=== PATIENT | female | born 1980 | race Caucasian/White ===

== ENCOUNTER 2017-08-02 10:56 | Emergency (ER) | payer SELFPAY ==
[~2017-08-02] VITALS: Ht 162.6 cm; Wt 48.1 kg
[~2017-08-02 10:56] MED LIST: AC500T PO; ACHD5005 PO; ALBU8.5H4 IH; AMOX500T2 PO; AZIT-21; AZIT250T81 PO; BUPR150T49 PO; CALC60OI2 TP; CALC60SU TP; CLIN150C2 PO; CYCL10TA9 PO; DCS100C PO; FERR-57 PO; FERR160T5 PO; FLT05NA16 NS; GUAI-555 PO; HYDR-3063 PO; HYDR1TAB PO; HYDR1TAB8 PO; IBP600T1 PO; IBUP-30 PO; LISI40TA PO; LRT10T PO; MNTL10T PO; MULT-974 PO; MULT1CAP27 PO; NAPR-243 PO; NF-KET2% TOP; OCP; OMEG-34 PO; ONDA4TAB11 PO; ONDAN4ODT PO; PRCD5U PO; PRD50T PO; PREN-115 PO; PREN1TAB39 PO; PRM25T PO; TRAM50TA2 PO; TRM50T PO; [UNRECOGNIZED DRUG - CODE] PO
--- OUTSIDE RECORDS SUMMARY | 2017-08-02 11:02 | XMS REPORT | Clinical Summary ---
Author Author User, RONNIE Organization [facility] Address Unknown Phone Allergies, Adverse Reactions, Alerts Allergy Name Reaction Description Start Date Severity Status Provider No Known Allergies Naima Hinson Conditions or Problems Problem Name Problem Code Onset Date Status Entry Date Provider Comment Standard Description Annotate WEIGHT LOSS 783.21 Active Naima Hinson Loss of weight OTHER PSORIASIS 696.1 Active Naima Hinson Other psoriasis STREPTOCOCCAL PHARYNGITIS 034.0 Active Naima Hinson Streptococcal sore throat ANEMIA, IRON DEFICIENCY NEC 280.8 Active Naima Hinson Other specified iron deficiency anemias Medication List Medication Instructions Start Date Stop Date Generic Name NDC Status Provider Patient Instruction OTEZLA 30 MG TABS 1 TAB PO BID, APPROXIMATELY 12 HRS APART APREMILAST 24248774706 Active Naima Hinson CLOBETASOL PROPIONATE 0.05 % CREA APPLY BY TOPICAL ROUTE 2 TIMES EVERY DAY A THIN LAYER TO THE AFFECTED AREAS CLOBETASOL PROPIONATE 91121968345 Active Naima Hinson CIPRO 500 MG TABS 1 PO BID X 7 DAYS CIPROFLOXACIN HCL 86976540202 Active Keyonna Mobley PYRIDIUM 200 MG TABS 1 PO TID PRN PHENAZOPYRIDINE HCL 72438265708 Active Keyonna Mobley DEPO-PROVERA 150 MG/ML SUSP 1 injection every 3 months 2012 MEDROXYPROGESTERONE ACETATE 99179949480 Active Naima Hinson MULTIVITAMINS TABS 1 PO QD MULTIPLE VITAMIN Active Naima Hinson VITAMIN D 1000 UNIT TABS 1 PO Daily CHOLECALCIFEROL 56227400868 Active Naima Hinson FISH OIL 1000 MG CAPS 1 PO daily OMEGA-3 FATTY ACIDS 37214075373 Active Naima Hinson Vital Signs Date Name Value Unit Range Description blood pressure, diastolic - 8462-4 55 mm[Hg] BP marley blood pressure, systolic - 8480-6 100 mm[Hg] BP sys pulse rate E&M - 8867-4 70 /min Heart rate respiratory rate E&M - 9279-1 14 /min Resp rate weight E&M - 3141-9 105 [lb_av] Weight Measured blood pressure, diastolic - 8462-4 65 mm[Hg] BP marley blood pressure, systolic - 8480-6 95 mm[Hg] BP sys pulse rate E&M - 8867-4 72 /min Heart rate respiratory rate E&M - 9279-1 14 /min Resp rate weight E&M - 3141-9 106 [lb_av] Weight Measured blood pressure, diastolic - 8462-4 58 mm[Hg] BP marley blood pressure, systolic - 8480-6 108 mm[Hg] BP sys height E&M - 8302-2 64 [in_us] Bdy height pulse rate E&M - 8867-4 78 /min Heart rate respiratory rate E&M - 9279-1 14 /min Resp rate temperature E&M 98.1 [degF] Body temperature weight E&M - 3141-9 105 [lb_av] Weight Measured Diagnostic Results Date Name Value Unit Range Description Clinical Lists Update: CBC,CMP,FERRITIN - Chemistry Estimated Glomerular Filtration Rate (calc) 111 mL/min/1.73m2 albumin, serum 4.6 g/dL alkaline phosphatase, serum 60 U/L urea nitrogen, blood 14 mg/dL calcium, serum 9.0 mg/dL chloride, serum 105 mmol/L carbon dioxide, venous blood 27.0 mmol/L creatinine, serum 0.7 mg/dL ferritin, serum 97.3 ng/mL potassium, serum 3.9 mmol/L protein, total, serum 6.9 g/dL aspartate aminotransferase (SGOT), serum 15 U/L alanine aminotransferase (SGPT), serum 10 U/L bilirubin, serum, total 0.6 mg/dL sodium, serum 137 mmol/L anion gap, serum 9 glucose, plasma fasting 98 mg/dL Clinical Lists Update: CBC,CMP,FERRITIN - Hematology hematocrit, blood 36 % erythrocyte (RBC) count 3.76 10*6/mm3 leukocyte count, blood 5.5 10*3/mm3 red blood cell distribution width 16.1 % mean corpuscular volume, RBC 96 fL platelet count 189 10*3/mm3 hemoglobin, blood 11.8 g/dL Clinical Lists Update: CBC,CMP,FERRITIN,ESR,HGA1C,UA - Chemistry protein, total, serum 7.0 g/dL aspartate aminotransferase (SGOT), serum 13 U/L urea nitrogen, blood 11 mg/dL alanine aminotransferase (SGPT), serum 7 U/L bilirubin, serum, total 0.3 mg/dL calcium, serum 9.0 mg/dL sodium, serum 137 mmol/L anion gap, serum 9 chloride, serum 104 mmol/L glucose, plasma fasting 116 mg/dL alkaline phosphatase, serum 65 U/L potassium, serum 3.9 mmol/L carbon dioxide, venous blood 28.0 mmol/L creatinine, serum 0.6 mg/dL albumin, serum 4.3 g/dL ferritin, serum 8.2 ng/mL Estimated Glomerular Filtration Rate (calc) 115 mL/min/1.73m2 hemoglobin A1C, blood, as % of total hemoglobin 5.4 % Clinical Lists Update: CBC,CMP,FERRITIN,ESR,HGA1C,UA - Hematology red blood cell distribution width 15.0 % mean corpuscular volume, RBC 93 fL leukocyte count, blood 5.9 10*3/mm3 erythrocyte (RBC) count 4.32 10*6/mm3 platelet count 268 10*3/mm3 hemoglobin, blood 12.4 g/dL hematocrit, blood 40 % erythrocyte sedimentation rate 7 mm/h Clinical Lists Update: CBC,CMP,FERRITIN,ESR,HGA1C,UA - Urinalysis protein, urine, semiquantitative (dipstick) neg blood in urine (hemoglobin) by dipstick trace glucose, urine, semiquantitative neg hyaline casts, urine none /[LPF] bilirubin, urine neg WBC urine on microscopy 5-10 {Cells}/[HPF] ketones, urine, by test strip neg mucus on urinalysis none nitrite, urine, semiquantitative positive RBC urine by microscopy 0-2 pH, urine, semiquantitative 6.0 epithelial cells, urine 5-10 /[LPF] specific gravity, urine >1.030 bacteria, urine microscopy 1+ urobilinogen, urine, semiquantitative (dipstick) 0.2 appearance, urine Cloudy Yellow Clinical Lists Update: UA - Urinalysis glucose, urine, semiquantitative neg bilirubin, urine neg ketones, urine, by test strip neg nitrite, urine, semiquantitative neg pH, urine, semiquantitative 7.5 specific gravity, urine 1.025 urobilinogen, urine, semiquantitative (dipstick) 0.2 appearance, urine Cloudy Yellow WBC urine on microscopy 20-30 {Cells}/[HPF] RBC urine by microscopy 5-10 bacteria, urine microscopy 2+ hyaline casts, urine none /[LPF] epithelial cells, urine 10-20 /[LPF] mucus on urinalysis 1+ protein, urine, semiquantitative (dipstick) 30 blood in urine (hemoglobin) by dipstick trace Encounters Code Encounter Date Provider Facility CPT-58342 Ofc Vst, Est Level IV 19:32:42 CDT [facility] CPT-40497 Ofc Vst, Est Level V 21:11:23 CDT Naima Hinson DO, FACP CPT-97476 Ofc Vst, New Level IV 17:38:03 CDT Naima [facility]
--- OUTSIDE RECORDS SUMMARY | 2017-08-02 11:02 | XMS REPORT | Clinical Summary ---
Author Author User, RONNIE Organization [place] [facility] Address Unknown Phone Allergies, Adverse Reactions, [...] PO BID, APPROXIMATELY 12 HRS APART APREMILAST 01509649092 Active Naima Hinson CLOBETASOL PROPIONATE 0.05 % CREA APPLY BY TOPICAL ROUTE 2 TIMES EVERY DAY A THIN LAYER TO THE AFFECTED AREAS CLOBETASOL PROPIONATE 08348828277 Active Naima Hinson CIPRO 500 MG TABS 1 PO BID X 7 DAYS CIPROFLOXACIN HCL 02545258491 Active eKyonna Mobley PYRIDIUM 200 MG TABS 1 PO TID PRN PHENAZOPYRIDINE HCL 62569545410 Active Keyonna Mobley DEPO-PROVERA 150 MG/ML SUSP 1 injection every 3 months 2012 MEDROXYPROGESTERONE ACETATE 45744853543 Active Naima Hinson MULTIVITAMINS TABS 1 PO QD MULTIPLE VITAMIN Active Naima Hinson VITAMIN D 1000 UNIT TABS 1 PO Daily CHOLECALCIFEROL 91412168687 Active Naima Hinson FISH OIL 1000 MG CAPS 1 PO daily OMEGA-3 FATTY ACIDS 54135661307 Active Naima Hinson Vital Signs Date Name [...] trace Encounters Code Encounter Date Provider Facility CPT-35688 Ofc Vst, Est Level IV 19:32:42 CDT [facility] CPT-73810 Ofc Vst, Est Level V 21:11:23 CDT Naima Hinson DO, FACP CPT-86181 Ofc Vst, New Level IV 17:38:03 CDT Naima [facility]
--- OUTSIDE RECORDS SUMMARY | 2017-08-02 11:02 | XMS REPORT | Clinical Summary ---
Author Author User, RONNIE Organization [facility] Address Unknown Phone Allergies, Adverse Reactions, [...] PO BID, APPROXIMATELY 12 HRS APART APREMILAST 57044893872 Active Naima Hinson CLOBETASOL PROPIONATE 0.05 % CREA APPLY BY TOPICAL ROUTE 2 TIMES EVERY DAY A THIN LAYER TO THE AFFECTED AREAS CLOBETASOL PROPIONATE 39659698266 Active Naima Hinson CIPRO 500 MG TABS 1 PO BID X 7 DAYS CIPROFLOXACIN HCL 19023126420 Active Keyonna Mobley PYRIDIUM 200 MG TABS 1 PO TID PRN PHENAZOPYRIDINE HCL 71674435174 Active Keyonna Mobley DEPO-PROVERA 150 MG/ML SUSP 1 injection every 3 months 2012 MEDROXYPROGESTERONE ACETATE 71951180238 Active Naima Hinson MULTIVITAMINS TABS 1 PO QD MULTIPLE VITAMIN Active Naima Hinson VITAMIN D 1000 UNIT TABS 1 PO Daily CHOLECALCIFEROL 20820594352 Active Naima Hinson FISH OIL 1000 MG CAPS 1 PO daily OMEGA-3 FATTY ACIDS 82667175001 Active Naima Hinson Vital Signs Date Name [...] trace Encounters Code Encounter Date Provider Facility CPT-54418 Ofc Vst, Est Level IV 19:32:42 CD[facility] CPT-74381 Ofc Vst, Est Level V 21:11:23 CDT Naima Hinson DO, FACP CPT-09157 Ofc Vst, New Level IV 17:38:03 CDT Naima [facility]
--- OUTSIDE RECORDS SUMMARY | 2017-08-02 11:02 | XMS REPORT ---
Author Author SINA FOY [facility] e[employer] Address Unknown Phone Unavailable Care Team Providers Care Director Search Name Role Phone SINA FOY Unavailable Allergies, Adverse Reactions, Alerts Substance Reaction Event Type N.K.D.A. Info Not Available Non Drug Allergy Problems Problem Type Condition Code Onset Dates Condition Status Assessment Acute left ankle pain M25.572 Active Problem Unspecified viral exanthem 057.9 Active Problem Acute bronchitis 466.0 Active Problem Dizziness and giddiness 780.4 Active Problem Acute upper respiratory infections of unspecified site 465.9 Active Problem Unspecified anemia 285.9 Active Problem Acute sinusitis, unspecified 461.9 Active Problem Cough 786.2 Active Problem Other specified disease of hair and hair follicles 704.8 Active Problem Wheezing 786.07 Active Medications Medication Code System Code Instructions Start Date End Date Status Dosage [place] [facility] [address]-31 5-325 MG Orally tid prn May 06, 2016 1 tablet as needed Albuterol Sulfate [facility] [address]-11 90 mcg/actuation October 11, 2014 2 puffs by Inhalation route every 4-6 hours as needed PRN cough or wheezing Ibuprofen [facility] [address]-21 800 mg October 11, 2014 take 1 tablet ( 800 mg) by oral route 3 times per day with food Flonase NDC 0 50 mcg/actuation prn January 14, 2014 1 sprays by Nasal route 2 times per day in each nostril Procedures Procedure Coding System Code Date TORADOL (IM) 60 MG/2ML (UP TO 15 MG) CPT-4 J1885 May 06, 2016 THER/PROPH/DIAG INJ, SC/IM CPT-4 85322 May 06, 2016 X-RAY EXAM OF ANKLE CPT-4 36794 May 06, 2016 Office Visit, Est Pt., Level 4 CPT-4 89957 May 06, 2016 Vital Signs Date/Time: May 06, 2016 Cardiac Monitoring Heart Rate 60 bpm Weight 114 lbs Height 64 in BMI 19.57 Index Blood Pressure Diastolic 60 mmHg Blood Pressure Systolic 90 mmHg Results Name Result Date Reference Range Unit Abnormality Flag Xray : Ankle, Left, 3 views (IN HOUSE) Summary Purpose eClinicalWorks Submission
--- OUTSIDE RECORDS SUMMARY | 2017-08-02 11:03 | XMS REPORT | Clinical Summary ---
Author Author User, RONNIE Organization [place] [facility] Address Unknown Phone Allergies, Adverse Reactions, [...] PO BID, APPROXIMATELY 12 HRS APART APREMILAST 41750267660 Active Naima Hinson CLOBETASOL PROPIONATE 0.05 % CREA APPLY BY TOPICAL ROUTE 2 TIMES EVERY DAY A THIN LAYER TO THE AFFECTED AREAS CLOBETASOL PROPIONATE 49149207156 Active Naima Hinson CIPRO 500 MG TABS 1 PO BID X 7 DAYS CIPROFLOXACIN HCL 64053739278 Active Keyonna Mobley PYRIDIUM 200 MG TABS 1 PO TID PRN PHENAZOPYRIDINE HCL 53082357950 Active Keyonna Mobley DEPO-PROVERA 150 MG/ML SUSP 1 injection every 3 months 2012 MEDROXYPROGESTERONE ACETATE 10672750747 Active Naima Hinson MULTIVITAMINS TABS 1 PO QD MULTIPLE VITAMIN Active Naima Hinson VITAMIN D 1000 UNIT TABS 1 PO Daily CHOLECALCIFEROL 43020038212 Active Naima Hinson FISH OIL 1000 MG CAPS 1 PO daily OMEGA-3 FATTY ACIDS 43879139660 Active Naima Hinson Vital Signs Date Name [...] trace Encounters Code Encounter Date Provider Facility CPT-33268 Ofc Vst, Est Level IV 19:32:42 CDT [facility] CPT-15476 Ofc Vst, Est Level V 21:11:23 CDT Naima Hinson DO, FACP CPT-94016 Ofc Vst, New Level IV 17:38:03 CDT Naima [facility]
--- OUTSIDE RECORDS SUMMARY | 2017-08-02 11:03 | XMS REPORT | Clinical Summary ---
Author Author User, RONNIE Organization [place] [facility] Address Unknown Phone Allergies, Adverse Reactions, [...] PO BID, APPROXIMATELY 12 HRS APART APREMILAST 82293178890 Active Naima Hinson CLOBETASOL PROPIONATE 0.05 % CREA APPLY BY TOPICAL ROUTE 2 TIMES EVERY DAY A THIN LAYER TO THE AFFECTED AREAS CLOBETASOL PROPIONATE 11074131827 Active Naima Hinson CIPRO 500 MG TABS 1 PO BID X 7 DAYS CIPROFLOXACIN HCL 12870280008 Active Keyonna Mobley PYRIDIUM 200 MG TABS 1 PO TID PRN PHENAZOPYRIDINE HCL 61743101424 Active Keyonna Mobley DEPO-PROVERA 150 MG/ML SUSP 1 injection every 3 months 2012 MEDROXYPROGESTERONE ACETATE 13827814443 Active Naima Hinson MULTIVITAMINS TABS 1 PO QD MULTIPLE VITAMIN Active Naima Hinson VITAMIN D 1000 UNIT TABS 1 PO Daily CHOLECALCIFEROL 71457103006 Active Naima Hinson FISH OIL 1000 MG CAPS 1 PO daily OMEGA-3 FATTY ACIDS 63632222645 Active Naima Hinson Vital Signs Date Name [...] trace Encounters Code Encounter Date Provider Facility CPT-39636 Ofc Vst, Est Level IV 19:32:42 CDT [facility] H[facility] CPT-21358 Ofc Vst, Est Level V 21:11:23 CDT Naima Hinson DO, FACP CPT-06985 Ofc Vst, New Level IV 17:38:03 CDT Naima [facility]
--- OUTSIDE RECORDS SUMMARY | 2017-08-02 11:03 | XMS REPORT | Clinical Summary ---
Author Author User, RONNIE Organization [place] [facility] Address Unknown Phone Allergies, Adverse Reactions, [...] PO BID, APPROXIMATELY 12 HRS APART APREMILAST 35518367440 Active Naima Hinson CLOBETASOL PROPIONATE 0.05 % CREA APPLY BY TOPICAL ROUTE 2 TIMES EVERY DAY A THIN LAYER TO THE AFFECTED AREAS CLOBETASOL PROPIONATE 76599191811 Active Naima Hinson CIPRO 500 MG TABS 1 PO BID X 7 DAYS CIPROFLOXACIN HCL 14665026898 Active Keyonna Mobley PYRIDIUM 200 MG TABS 1 PO TID PRN PHENAZOPYRIDINE HCL 79566755470 Active Keyonna Mobley DEPO-PROVERA 150 MG/ML SUSP 1 injection every 3 months 2012 MEDROXYPROGESTERONE ACETATE 85780814611 Active Naima Hinson MULTIVITAMINS TABS 1 PO QD MULTIPLE VITAMIN Active Naima Hinson VITAMIN D 1000 UNIT TABS 1 PO Daily CHOLECALCIFEROL 54066728944 Active Naima Hinson FISH OIL 1000 MG CAPS 1 PO daily OMEGA-3 FATTY ACIDS 57499510247 Active Naima Hinson Vital Signs Date Name [...] trace Encounters Code Encounter Date Provider Facility CPT-77253 Ofc Vst, Est Level IV 19:32:42 CD[facility] CPT-69283 Ofc Vst, Est Level V 21:11:23 CDT Naima Hinson DO, FACP CPT-78400 Ofc Vst, New Level IV 17:38:03 CDT Naima [facility]
--- OUTSIDE RECORDS SUMMARY | 2017-08-02 11:03 | XMS REPORT | Clinical Summary ---
Author Author User, RONNIE Organization [place] [facility] Address Unknown Phone Allergies, Adverse Reactions, [...] PO BID, APPROXIMATELY 12 HRS APART APREMILAST 46207739397 Active Naima Hinson CLOBETASOL PROPIONATE 0.05 % CREA APPLY BY TOPICAL ROUTE 2 TIMES EVERY DAY A THIN LAYER TO THE AFFECTED AREAS CLOBETASOL PROPIONATE 33908283487 Active Naima Hinson CIPRO 500 MG TABS 1 PO BID X 7 DAYS CIPROFLOXACIN HCL 41959817535 Active Keyonna Mobley PYRIDIUM 200 MG TABS 1 PO TID PRN PHENAZOPYRIDINE HCL 11836942740 Active Keyonna Mobley DEPO-PROVERA 150 MG/ML SUSP 1 injection every 3 months 2012 MEDROXYPROGESTERONE ACETATE 85175651117 Active Naima Hinson MULTIVITAMINS TABS 1 PO QD MULTIPLE VITAMIN Active Naima Hinson VITAMIN D 1000 UNIT TABS 1 PO Daily CHOLECALCIFEROL 20032976519 Active Naima Hinson FISH OIL 1000 MG CAPS 1 PO daily OMEGA-3 FATTY ACIDS 07485605264 Active Naima Hinson Vital Signs Date Name [...] trace Encounters Code Encounter Date Provider Facility CPT-95904 Ofc Vst, Est Level IV 19:32:42 CDT [facility] CPT-19705 Ofc Vst, Est Level V 21:11:23 CDT Naima Hinson DO, FACP CPT-26536 Ofc Vst, New Level IV 17:38:03 CDT Naima [facility]
--- OUTSIDE RECORDS SUMMARY | 2017-08-02 11:04 | XMS REPORT | Continuity of Care Document ---
Author Author [facility] Address Unknown Phone Unavailable Allergies Active Description Code Type Severity Reaction Onset Reported/Identified Relationship to Patient Clinical Status Yes No Known Drug Allergies [id number] Drug Allergy Mild N/A 10/21/2009 Medications There is no data. Problems Date Dx Coded Attending Type Code Diagnosis Diagnosed By 04/16/2008 CHUNG NUNEZ APRNRICIA R V25.49 SURVEILLANCE OF OTHER CONTRACEPTIVE METHOD 04/16/2008 CHUNG NUNEZ APRNRICIA R V25.49 SURVEILLANCE OF OTHER CONTRACEPTIVE METHOD 11/10/2010 CHUNG NUNEZ APRNRICIA R 704.00 ALOPECIA UNSPECIFIED 11/10/2010 MAYRA RADFORD DORINDA R 780.79 MALAISE AND FATIGUE 11/10/2010 NUNEZ PICK UP OPERATOR DORINDA R 783.21 WEIGHT LOSS 11/10/2010 MAYRA RADFORD DORINDA R 704.00 ALOPECIA UNSPECIFIED 11/10/2010 NUNEZ PICK UP OPERATOR DORINDA R 780.79 MALAISE AND FATIGUE 11/10/2010 NUNEZ PICK UP OPERATOR DORINDA R 783.21 WEIGHT LOSS 05/11/2012 MAYRA SUAREZN, DORINDA R 285.9 ANEMIA 05/11/2012 NUNEZ PICK UP OPERATOR DORINDA R 465.9 UPPER RESPIRATORY INFECTION 05/11/2012 MAYRA SUAREZN DORINDA R 780.4 dizziness 05/11/2012 MAYRA SUAREZN DORINDA R 285.9 ANEMIA 05/11/2012 NUNEZ PICK UP OPERATOR DORINDA R 465.9 UPPER RESPIRATORY INFECTION 05/11/2012 NUNEZ PICK UP OPERATOR DORINDA R 780.4 dizziness 08/07/2012 MAYRA RADFORD DORINDA R 466.0 ACUTE BRONCHITIS 08/07/2012 MAYRA RADFORD DORINDA R 466.0 ACUTE BRONCHITIS 01/14/2014 CHUNG NUNEZ APRNRICIA R 461.9 SINUSITIS ACUTE 01/14/2014 CHUNG NUNEZ APRNRICIA R 786.2 COUGH 02/07/2014 PHILIPPE CARMONA, FLAKITO Lua Ot 882.0 02/07/2014 PHILIPPE CARMONA, FLAKITO Chanell Ot E000.0 02/07/2014 PHILIPPE CARMONA, FLAKITO Lua Ot E029.9 02/07/2014 PHILIPPE CARMONA, FLAKITO Lua Ot E849.6 02/07/2014 PHILIPPE CARMONA, FLAKITO Lua Ot E920.4 10/14/2014 Ot 696.1 OTHER PSORIASIS 10/14/2014 Ot 782.1 NONSPECIF SKIN ERUPT NEC 11/05/2014 BARRERA DO, CARMENCITA Ot 280.9 11/05/2014 BARRERA DO, CARMENCITA Ot 280.9 11/07/2014 BARRERA DO, CARMENCITA Ot 280.9 11/11/2014 BARRERA DO, CARMENCITA Ot 280.9 11/11/2014 BARRERA DO, CARMENCITA Ot 280.9 11/13/2014 BARRERA DO, CARMENCITA Ot 280.9 11/13/2014 BARRERA DO, CARMENCITA Ot 280.9 01/29/2015 BARRERA DO, CARMENCITA Ot 280.9 01/30/2015 BARRERA DO, CARMENCITA Ot 280.9 IRON DEFIC ANEMIA NOS 01/20/2016 BRARERA DO, CARMENCITA Ot 280.9 IRON DEFIC ANEMIA NOS 01/20/2016 BARRERA DO, CARMENCITA Ot 280.9 IRON DEFIC ANEMIA NOS Procedures Code Description [place] [address] OXIMET[place] 01/14/2014 Results There is no data. Encounters ACCT No. Visit Date/Time Discharge Status Pt. Type Provider Facility Loc./Unit Complaint [id number] 01/14/2014 13:54:00 01/14/2014 23:59:59 CLS Outpatient DORINDA NUNEZ APRN [id number] 08/07/2012 12:30:00 08/07/2012 23:59:59 CLS Outpatient DORINDA NUNEZ APRN [id number] 01/20/2016 20:09:00 01/20/2016 22:36:00 DIS Emergency DULCE ESCAMILLA DO [facility] [id number] 01/31/2015 00:10:00 01/31/2015 23:59:59 CLS Preadmit CARMENCITA BARRERA DO [facility] [id number] 11/13/2014 15:05:00 01/30/2015 00:01:00 DIS Outpatient CARMENCITA BARRERA DO [facility] [id number] 08/20/2014 15:23:00 08/20/2014 17:41:00 DIS Emergency KEM LLANOS MD [facility] [id number] 02/07/2014 07:39:00 02/07/2014 10:23:00 DIS Emergency FLAKITO PAEZ MD [facility] [id number] 08/01/2013 11:01:00 08/01/2013 13:20:00 DIS Emergency [id number] 10/14/2014 14:17:00 Document Registration
--- OUTSIDE RECORDS SUMMARY | 2017-08-02 11:04 | XMS REPORT | Clinical Summary ---
Author Author User, RONNIE Organization [place] [facility] Address Unknown Phone Allergies, Adverse Reactions, [...] throat ANEMIA, IRON DEFICIENCY NEC 280.8 Active aNima Hinson Other specified iron deficiency anemias Medication List Medication Instructions Start Date Stop Date Generic Name NDC Status Provider Patient Instruction OTEZLA 30 MG TABS 1 TAB PO BID, APPROXIMATELY 12 HRS APART APREMILAST 78703410124 Active Naima Hinson CLOBETASOL PROPIONATE 0.05 % CREA APPLY BY TOPICAL ROUTE 2 TIMES EVERY DAY A THIN LAYER TO THE AFFECTED AREAS CLOBETASOL PROPIONATE 29413684139 Active Naima Hinson CIPRO 500 MG TABS 1 PO BID X 7 DAYS CIPROFLOXACIN HCL 21398279839 Active Keyonna Mobley PYRIDIUM 200 MG TABS 1 PO TID PRN PHENAZOPYRIDINE HCL 50696163397 Active Keyonna Mobley DEPO-PROVERA 150 MG/ML SUSP 1 injection every 3 months 2012 MEDROXYPROGESTERONE ACETATE 62920815369 Active Naima Hinson MULTIVITAMINS TABS 1 PO QD MULTIPLE VITAMIN Active Naima Hinson VITAMIN D 1000 UNIT TABS 1 PO Daily CHOLECALCIFEROL 91810460452 Active Naima Hinson FISH OIL 1000 MG CAPS 1 PO daily OMEGA-3 FATTY ACIDS 05696433525 Active Naima Hinson Vital Signs Date Name [...] trace Encounters Code Encounter Date Provider Facility CPT-12291 Ofc Vst, Est Level IV 19:32:42 CDT [facility] CPT-73158 Ofc Vst, Est Level V 21:11:23 CDT Naima Hinson DO, FACP CPT-95379 Ofc Vst, New Level IV 17:38:03 CDT Naima [facility]
[2017-08-02] MEDS ORDERED: BENZ-13 PO (12:01)
[2017-08-02] MEDS ORDERED: D-ME118S7 PO (12:01)
[2017-08-02] MEDS ORDERED: OSLT75C PO (12:01)
--- NOTE | 2017-08-02 12:01 | ED Cough/URI ---
General Chief Complaint: Cough/Cold/Flu Symptoms Stated Complaint: FEVER, COUGH, BODY ACHES Nursing Triage Note: AMB TO ROOM C/O FEVER,COUGH CONGESTION, FOR 2 DAYS Source: patient History of Present Illness Time seen by provider: 11:15 Initial Comments PT AND SON BEING SEEN IN ER FOR SAME 6 CHILDREN AT HOME -ALL STARTING TO GET SICK WAS HERE ON TUESDAY FOR SAME C/O NON-PRODUCTIVE COUGH AND CONGESTION C/O FEVER OF 103-104 C/O HEADACHE AND BODY ACHES NO CHEST PAIN OR SHORTNESS OF BREATH PT DID RECEIVE FLU VACCINATION THIS YEAR TOOK TYLENOL AT 0830 THIS AM NOTHING ELSE FOR SYMPTOMS PT'S SYMPTOMS BEGAN EVENING OF 07/31/17 PT DID RECEIVE FLU VACCINATION THIS YEAR PCP:[facility] Allergies and Home Medications Allergies Coded Allergies: No Known Drug Allergies (Unverified , 10/21/09) Home Medications Amoxicillin 500 Mg Tablet, 500 MG PO TID, #30 Ref 0 Prescribed by: DULCE ESCAMILLA on 01/20/16 2209 Benzonatate 100 Mg Capsule, 1-2 TAB PO TID, #30 Prescribed by: JAQUELIN JENSEN on 08/02/17 1201 D-Methorphan Hb/Prometh HCl 118 Ml Syrup, 1-2 TSP PO Q4H, #120 Prescribed by: JAQUELIN JENSEN on 08/02/17 1201 Ferrous Sulfate, Dried 160 Mg Tablet.er, Unknown Dose PO, (Reported) Multivitamin 1 Each Tablet, 1 EACH PO DAILY for 30 Days Prescribed by: WALKER ALTAMIRANO on 11/01/14 1125 Oseltamivir Phosphate 75 Mg Cap, 75 MG PO BID, #10 Prescribed by: JAQUELIN JENSEN on 08/02/17 1201 Prednisone 50 Mg Tab, 50 MG PO DAILY for 4 Days, Ref 0 Prescribed by: DULCE ESCAMILLA on 01/20/16 2209 Tramadol HCl 50 Mg Tablet, 50-100 MG PO Q6H, #20 Ref 0 Prescribed by: DULCE ESCAMILLA on 01/20/16 2210 Constitutional: see HPI, fever, malaise, weakness EENTM: see HPI, nose congestion, throat pain Respiratory: see HPI, cough, No phlegm, No short of breath, No wheezing Cardiovascular: no symptoms reported Gastrointestinal: no symptoms reported Genitourinary: no symptoms reported LMP: Jul 19, 2017 (ON OCP'S ) Musculoskeletal: see HPI, other (BODY ACHES) Skin: no symptoms reported Psychiatric/Neurological: See HPI, Headache Past Pnbhvdd-Qcjege-Tddyaa Hx Patient Social History Alcohol Use: Denies Use Recreational Drug Use: No Smoking Status: Current Everyday Smoker (1 PPD) Recent Foreign Travel: No Contact w/Someone Who Travel: No Recent Infectious Disease Expo: No Immunizations Up To Date Tetanus Booster (TDap): Less than 5yrs Date of Influenza Vaccine: Aug 08, 2014 Surgeries History of Surgeries: Yes Surgeries: Section Respiratory Respiratory Disorders: Asthma, Pneumonia Cardiovascular History of Cardiac Disorders: No Neurological History of Neurological Disord: No Reproductive System : No Hx Reproductive Disorders: Yes Sexually Transmitted Disease: Yes HIV/AIDS: No Female Reproductive Disorders: Denies, Ovarian Cyst Genitourinary History of Genitourinary Disor: Yes Genitourinary Disorders: Bladder Infection, UTI-Chronic Gastrointestinal History of Gastrointestinal Di: No Musculoskeletal History of Musculoskeletal Dis: No Endocrine History of Endocrine Disorders: No HEENT History of HEENT Disorders: Yes HEENT Disorders: Tonsilitis Loss of Vision: Denies Hearing Impairment: Denies Cancer History of Cancer: No Psychosocial History of Psychiatric Problem: No Integumentary History of Skin or Integumenta: No Blood Transfusions History of Blood Disorders: Yes (ANEMIA) Adverse Reaction to a Blood Tr: No Physical Exam Vital Signs Vital Sign - Last 12Hours 08/02/17 11:15 Temp 102.0 Pulse 105 Resp 18 B/P (MAP) 102/52 (69) Pulse Ox 99 O2 Delivery Room Air Capillary Refill : Less Than 3 Seconds General Appearance: WD/WN, no apparent distress, thin, other (STRONG ODOR OF CIGARETTES) HEENT: PERRL/EOMI, TMs normal, pharynx normal, other (NASAL MUCOSAL EDEMA, CLEAR POST NASAL DRAINAGE. 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, no motor/sensory deficits, alert, normal mood/affect, oriented x 3 Skin: normal color, warm/dry, No rash Progress/Results/Core Measures Suspected Sepsis Recent Fever Within 48 Hours: Yes Infection Criteria Present: None New/Unexplained Altered Menta: No Sepsis Screen: No Definite Risk Sepsis Diagnosis: SIRS Temperature:102.0 Pulse: 105 Respiratory Rate: 18 Blood Pressure 102 /52 Mean: 69 Results/Orders Micro Results Microbiology 08/02/17 Influenza Types A,B Antigen (SMITHA) - Final, Complete My Orders Orders - JAQUELIN JENSEN DO Influenza A And B Antigens (08/02/17 11:11) Vital Signs/I&O Vital Sign - Last 12Hours 08/02/17 08/02/17 11:15 12:12 Temp 102.0 102.0 Pulse 105 105 Resp 18 18 B/P (MAP) 102/52 (69) Pulse Ox 99 99 O2 Delivery Room Air Capillary Refill : Less Than 3 Seconds Blood Pressure Mean: 69 Progress Note : Progress Note + INFLUENZA A Departure Impression Impression: Primary Impression: Influenza A Disposition: 01 HOME, SELF-CARE Condition: Stable Departure-Patient Inst. Referrals: [facility] (PCP/Family) Primary Care Physician Patient Instructions: Flu, Adult (DC) Add. Discharge Instructions: LOTS OF CLEAR LIQUIDS--WATER, BROTH, JELLO, GATORADE TYLENOL 1 GRAM/ MOTRIN 800 MG 4 TIMES A DAY FOR PAIN OR FEVER FOLLOW UP WITH YOUR DR IN 3-4 DAYS IF NO BETTER All discharge instructions reviewed with patient and/or family. Voiced understanding. Scripts D-Methorphan Hb/Prometh HCl (Promethazine-Dm Syrup) 118 Ml Syrup 1-2 TSP PO Q4H for Cough, #120 ML Prov: JAQUELIN JENSEN DO 08/02/17 Benzonatate (Tessalon Perle) 100 Mg Capsule 1-2 TAB PO TID for Cough, #30 CAP Prov: JAQUELIN JENSEN DO 08/02/17 Oseltamivir Phosphate (Tamiflu) 75 Mg Cap 75 MG PO BID, #10 CAP Prov: JAQUELIN JENSEN DO 08/02/17 JAQUELIN JENSEN DO Aug 02, 2017 12:01
[2017-08-02 12:12] VITALS: BP 102/52
== END 2017-08-02 12:12 | disposition home or self-care (01) ==
LOC: EDUNIT# 10:56 → ER 10:58
DX: J10.1 Influenza due to other identified influenza virus with other respiratory manifestations (principal); J45.909 Unspecified asthma, uncomplicated; F17.210 Nicotine dependence, cigarettes, uncomplicated; D64.9 Anemia, unspecified
CPT/HCPCS: 87804; 99282

== ENCOUNTER → 2018-06-01 | Outpatient (CLI) | payer SELFPAY ==
[~2018-06-01] MED LIST changes: +BENZ100C18 PO; +D-ME118S7 PO; +OSLT75C PO
--- NOTE | 2018-06-01 17:11 | Diagnostic Imaging Report ---
Examination: Ultrasound pelvis Date: June 01, 2018. Indication: 38-year-old female, right lower quadrant abdominal pain. Comparison: CT pelvis August 01, 2013. Pelvic ultrasound December 13, 2011. Technique: A sonogram of the pelvis was performed utilizing transabdominal approach assessing holland-scale appearance and color Doppler flow. Findings: There are limitations of the exam relating to lack of endovaginal approach. The uterus measures 9.4 x 5.8 x 5.1 cm. No focal uterine masses are seen. The endometrium measures 1.0 cm in diameter. The right ovary measures 2.1 cm x 2.7 cm x 2.4 cm. The left ovary measures 3.5 cm x 3.0 cm x 2.5 cm. There is a left ovarian cyst or follicle measuring 1.9 x 1.2 x 1.2 cm in size. There is blood flow to both ovaries. No free pelvic fluid is demonstrated. Impression: 1. Endometrial thickness of 10 mm. 2. Left ovarian cyst or follicle measuring up to 1.9 cm in maximum size. Otherwise unremarkable appearance of the ovaries. 3. No free pelvic fluid. Dictated by: Dictated on workstation # [id number]
== END ==
LOC: RAD 14:07
PROVIDERS: ATTEND Nurse Practitioner Family
DX: N83.202 Unspecified ovarian cyst, left side (principal)
CPT/HCPCS: 76856

== ENCOUNTER → 2018-11-07 | Outpatient (CLI) | payer OTHER ==
--- NOTE | 2018-11-07 11:19 | Diagnostic Imaging Report ---
PROCEDURE: CT abdomen and pelvis without contrast. TECHNIQUE: Multiple contiguous axial images were obtained through the abdomen and pelvis without the use of intravenous contrast. Auto Exposure Controls were utilized during the CT exam to meet ALARA standards for radiation dose reduction. INDICATION: Right lower quadrant abdominal pain x 1 day. Nausea. Dysuria. CORRELATION STUDY: 11/18/2011. FINDINGS: The overall assessment is somewhat limited given the lack of contrast material and a generalized paucity of intra-abdominal fat. The lung zhao are clear. The unenhanced liver, gallbladder, spleen, pancreas, and adrenal glands are unremarkable. The abdominal aorta appears normal in contour. A 3 mm nonobstructing stone in the central pole of the right kidney is present. The ureters cannot be traced. No definitive ureteric calcification or obstructive uropathy. The gastrointestinal tract demonstrates no findings to reflect obstruction. What may be a portion of the appendix projecting medially in the right lower quadrant appears unremarkable without definitive evidence for acute appendicitis. There is the presence of a small amount of pelvic fluid. The uterus is present with the endometrium slightly prominent. There is also a low-density area at the level of the cervix which is also slightly prominent. No definitive enlarged ovarian cyst. The osseous structures are without acute abnormality. IMPRESSION: 1. The appendix is very limited in visualization. What may be the appendix has an unremarkable appearance. 2. There is the presence of a small amount of pelvic fluid. A definitive dominant ovarian mass is not visualized. The uterus as well as the cervix are somewhat prominent. If further assessment is desired, pelvic ultrasound imaging would be recommended. 3. Nonobstructing right renal stone. No definitive ureteric stone. 4. Given the overall limitations, if symptoms persist and/or clinically warranted, post contrast CT imaging would be recommended. Dictated by: Dictated on workstation # [id number]
== END ==
LOC: RAD 10:09
PROVIDERS: ATTEND Physician Assistant
DX: N20.0 Calculus of kidney (principal)
CPT/HCPCS: 74176

== ENCOUNTER 2019-02-01 00:42 | Emergency (ER) | payer OTHER ==
[~2019-02-01] VITALS: Ht 162.6 cm; Wt 48.1 kg
[2019-02-01] MEDS ORDERED: NS IV 1000 ML 1,000 ML IV ONE (00:46)
[2019-02-01 01:24] LABS: BASOPHILS # (AUTO) 0.1 10^3/uL (0.0-0.1); BASOPHILS % (AUTO) 1 % (0-10); EOSINOPHILS # (AUTO) 0.4 10^3/uL (0.0-0.3); EOSINOPHILS % (AUTO) 5 % (0-10); HEMATOCRIT 38 % (35-52); LYMPHOCYTES # (AUTO) 1.7 X 10^3 (1.0-4.0); LYMPHOCYTES % (AUTO) 22 % (12-44); MEAN CORPUSCULAR HEMOGLOBIN 31 PG (25-34); MEAN CORPUSCULAR HGB CONC 34 G/DL (32-36); MEAN CORPUSCULAR VOLUME 91 FL (80-99); MONOCYTES # (AUTO) 0.5 X 10^3 (0.0-1.0); MONOCYTES % (AUTO) 7 % (0-12); NEUTROPHILS # (AUTO) 4.9 X 10^3 (1.8-7.8); NEUTROPHILS % (AUTO) 65 % (42-75); PLATELET COUNT 251 10^3/uL (130-400); RED CELL DISTRIBUTION WIDTH 13.2 % (10.0-14.5); WHITE BLOOD COUNT 7.6 10^3/uL (4.3-11.0)
[2019-02-01] MEDS ORDERED: ONDANSETRON 4 MG/2 ML (SDV) Z0FRAN IVP ONE (01:30)
[2019-02-01] MEDS ORDERED: KETOROLAC 30 MG/ML VIAL IVP ONE (01:30)
[2019-02-01 01:31] LABS: BILIRUBIN,URINE NEGATIVE (NEGATIVE); CLARITY,URINE VERY CLOUDY; COLOR,URINE YELLOW; GLUCOSE, URINE (UA) NEGATIVE (NEGATIVE); KETONES,URINE 1+ (NEGATIVE); LEUKOCYTE ESTERASE ,URINE 2+ (NEGATIVE); NITRITE,URINE NEGATIVE (NEGATIVE); PH,URINE 8 (5-9); PROTEIN,URINE NEGATIVE (NEGATIVE); UROBILINOGEN,URINE 1 MG/DL (NORMAL)
[2019-02-01 01:44] LABS: AMORPHOUS SEDIMENT,UR MOD AMOR PHOSPHATE /LPF; BACTERIA,URINE TRACE /HPF; RBC,URINE 0-2 /HPF; WBC,URINE 0-2 /HPF
[2019-02-01 02:01] LABS: ALANINE AMINOTRANSFERASE 10 U/L (0-55); ALBUMIN 4.4 GM/DL (3.2-4.5); ALKALINE PHOSPHATASE 78 U/L (40-136); BILIRUBIN,TOTAL 0.5 MG/DL (0.1-1.0); BUN/CREATININE RATIO 18; CALCIUM 9.6 MG/DL (8.5-10.1); CARBON DIOXIDE 19 MMOL/L (21-32); CHLORIDE 105 MMOL/L (98-107); CREATININE SERUM 0.76 MG/DL (0.60-1.30); GFR ESTIMATED > 60; GLUCOSE 104 MG/DL (70-105); POTASSIUM 3.5 MMOL/L (3.6-5.0); SODIUM 137 MMOL/L (135-145); TOTAL PROTEIN 6.9 GM/DL (6.4-8.2)
[2019-02-01] MEDS ORDERED: ONDA4TAB11 SL (02:51)
[2019-02-01] MEDS ORDERED: ACHD5005 PO (02:51)
--- NOTE | 2019-02-01 02:52 | ED Abdominal Pain ---
General Chief Complaint: Abdominal/GI Problems Stated Complaint: ABD PAIN RT SIDE & BACK Source of Information: Patient Exam Limitations: No Limitations History of Present Illness Date Seen by Provider: Feb 01, 2019 Time Seen by Provider: 00:46 Initial Comments This 38-year-old woman presents to the emergency room with complaints of right mid abdominal, flank, and back pain. This started abruptly and woke her from sleep. It radiates down to the right lower quadrant. It started about 30 minutes prior to arrival in pain was rated as a 10. Patient has a history of ovarian cysts but states this feels a little different and higher up in the abdomen. A few months ago she had a CT scan performed that showed a 3 mm ureteral stone within the right kidney. She has nausea without vomiting. She denies any drug or alcohol use. She has not noted any urinary changes. Her primary care provider is Monika Valles. Allergies and Home Medications Allergies Coded Allergies: No Known Drug Allergies (Unverified , 10/21/09) Home Medications Amoxicillin 500 Mg Tablet, 500 MG PO TID Prescribed by: DULCE ESCAMILLA on 01/20/162208 Benzonatate 100 Mg Capsule, 1-2 TAB PO TID Prescribed by: JAQUELIN JENSEN on 08/02/17 1201 D-Methorphan Hb/Prometh HCl 118 Ml Syrup, 1-2 TSP PO Q4H Prescribed by: JAQUELIN JENSEN on 08/02/17 1201 Hydrocodone Bit/Acetaminophen 1 Tab Tab, 1 EACH PO Q4-6HR PRN for PAIN-MODERATE Prescribed by: UDAY QUINTANILLA on 02/01/19 0251 Multivitamin 1 Each Tablet, 1 EACH PO DAILY Prescribed by: WALKER ALTAMIRANO on 11/01/14 1125 Ondansetron 4 Mg Tab.rapdis, 4 MG SL Q4H PRN for NAUSEA/VOMITING Prescribed by: UDAY QUINTANILLA on 02/01/19 0251 Oseltamivir Phosphate 75 Mg Cap, 75 MG PO BID Prescribed by: JAQUELIN JENSEN on 08/02/17 1201 Prednisone 50 Mg Tab, 50 MG PO DAILY Prescribed by: DULCE ESCAMILLA on 01/20/16 220 Tramadol HCl 50 Mg Tablet, 50-100 MG PO Q6H Prescribed by: DULCE ESCAMILLA on 01/20/16 221 Patient Home Medication List Home Medication List Reviewed: Yes Review of Systems Review of Systems Constitutional: no symptoms reported EENTM: No Symptoms Reported Respiratory: No Symptoms Reported Cardiovascular: No Symptoms Reported Gastrointestinal: See HPI Genitourinary: See HPI Musculoskeletal: no symptoms reported Skin: no symptoms reported Psychiatric/Neurological: No Symptoms Reported Endocrine: No Symptoms Reported Hematologic/Lymphatic: No Symptoms Reported Past Qkhovgx-Icvcrc-Jtcdgz Hx Past Med/Social Hx: Reviewed and Corrections made Patient Social History Alcohol Use: Denies Use Recreational Drug Use: No Smoking Status: Current Everyday Smoker Type Used: Cigarettes Recent Foreign Travel: No Contact w/Someone Who Travel: No Recent Hopitalizations: Yes (CHILDBIRTH, ASTHMA AND ALLERGIES A KID) Immunizations Up To Date Tetanus Booster (TDap): Unknown PED Vaccines UTD: Yes Date of Influenza Vaccine: Aug 08, 2014 Past Medical History Surgeries: Yes Section Respiratory: Yes (asthma as child) Asthma, Pneumonia Cardiac: No Neurological: No : No Reproductive Disorders: Yes Female Reproductive Disorders: Denies, Ovarian Cyst Sexually Transmitted Disease: Yes HIV/AIDS: No Genitourinary: Yes Bladder Infection, Kidney Stones, UTI-Chronic Gastrointestinal: No Musculoskeletal: No Endocrine: No HEENT: Yes Tonsilitis Loss of Vision: Denies Hearing Impairment: Denies Cancer: No Psychosocial: No Integumentary: No Psoriasis Blood Disorders: Yes (ANEMIA) Adverse Reaction/Blood Tranf: No Physical Exam Vital Signs Vital Signs - First Documented 02/01/19 01:14 Temp 98.3 Pulse 80 Resp 24 B/P (MAP) 100/75 (83) Pulse Ox 99 O2 Delivery Room Air Capillary Refill : Height/Weight/BMI Height: 5'4" Weight: 106lbs. 0.0oz. 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, no motor/sensory deficits, alert, normal mood/affect, oriented x 3 Skin: normal color, warm/dry Progress/Results/Core Measures Results/Orders Lab Results Laboratory Tests Test 02/01/19 01:20 02/01/19 01:25 Range/Units White Blood Count 7.6 4.3-11.0 10^3/uL Red Blood Count 4.17 L 4.35-5.85 10^6/uL Hemoglobin 13.0 11.5-16.0 G/DL Hematocrit 38 35-52 % Mean Corpuscular Volume 91 80-99 FL Mean Corpuscular Hemoglobin 31 25-34 PG Mean Corpuscular Hemoglobin Concent 34 32-36 G/DL Red Cell Distribution Width 13.2 10.0-14.5 % Platelet Count 251 130-400 10^3/uL Mean Platelet Volume 10.0 7.4-10.4 FL Neutrophils (%) (Auto) 65 42-75 % Lymphocytes (%) (Auto) 22 12-44 % Monocytes (%) (Auto) 7 0-12 % Eosinophils (%) (Auto) 5 0-10 % Basophils (%) (Auto) 1 0-10 % Neutrophils # (Auto) 4.9 1.8-7.8 X 10^3 Lymphocytes # (Auto) 1.7 1.0-4.0 X 10^3 Monocytes # (Auto) 0.5 0.0-1.0 X 10^3 Eosinophils # (Auto) 0.4 H 0.0-0.3 10^3/uL Basophils # (Auto) 0.1 0.0-0.1 10^3/uL Sodium Level 137 135-145 MMOL/L Potassium Level 3.5 L 3.6-5.0 MMOL/L Chloride Level 105 98-107 MMOL/L Carbon Dioxide Level 19 L 21-32 MMOL/L Anion Gap 13 5-14 MMOL/L Blood Urea Nitrogen 14 7-18 MG/DL Creatinine 0.76 0.60-1.30 MG/DL Estimat Glomerular Filtration Rate > 60 BUN/Creatinine Ratio 18 Glucose Level 104 70-105 MG/DL Calcium Level 9.6 8.5-10.1 MG/DL Corrected Calcium 9.3 8.5-10.1 MG/DL Total Bilirubin 0.5 0.1-1.0 MG/DL Aspartate Amino Transf (AST/SGOT) 14 5-34 U/L Alanine Aminotransferase (ALT/SGPT) 10 0-55 U/L Alkaline Phosphatase 78 40-136 U/L Total Protein 6.9 6.4-8.2 GM/DL Albumin 4.4 3.2-4.5 GM/DL Serum Test, Qualitative NEGATIVE NEGATIVE Urine Color YELLOW Urine Clarity VERY CLOUDY H Urine pH 8 5-9 Urine Specific [place] 1.015 L 1.016-1.022 Urine Protein NEGATIVE NEGATIVE Urine Glucose (UA) NEGATIVE NEGATIVE Urine Ketones 1+ H NEGATIVE Urine Nitrite NEGATIVE NEGATIVE Urine Bilirubin NEGATIVE NEGATIVE Urine Urobilinogen 1 NORMAL MG/DL Urine Leukocyte Esterase 2+ H NEGATIVE Urine RBC (Auto) 4+ H NEGATIVE Urine RBC 0-2 /HPF Urine WBC 0-2 /HPF Urine Squamous Epithelial Cells 5-10 /HPF Urine Crystals PRESENT H /LPF Urine Amorphous Sediment MOD ISELA PHOSPHATE H /LPF Urine Bacteria TRACE /HPF Urine Casts NONE /LPF Urine Mucus SMALL H /LPF Urine Culture Indicated NO My Orders Orders - UDAY GARCIA MD Cbc With Automated Diff (02/01/19 00:46) Comprehensive Metabolic Panel (02/01/19 00:46) Hcg,Qualitative Serum (02/01/19 00:46) Ua Culture If Indicated (02/01/19 00:46) Ed Iv/Invasive Line Start (02/01/19 00:46) Ns Iv 1000 Ml (Sodium Chloride 0.9%) (02/01/19 00:46) Ketorolac Injection (Toradol Injection) (02/01/19 01:30) Ondansetron Injection (Zofran Injectio (02/01/19 01:30) Abdomen/Kub 1view (02/01/19 02:43) Hydrocodone/Apap 5/325 Tablet (Lortab 5 (02/01/19 03:30) Medications Given in ED Current Medications Medications Dose Ordered Sig/Jennifer Route Start Time Stop Time Status Last Admin Dose Admin Acetaminophen/ Hydrocodone Bitart 1 tab ONCE ONCE PO 02/01/19 03:30 02/01/19 03:31 DC 02/01/19 03:30 1 TAB Ketorolac Tromethamine 15 mg ONCE ONCE IVP 02/01/19 01:30 02/01/19 01:31 DC 02/01/19 01:36 15 MG Ondansetron HCl 8 mg ONCE ONCE IVP 02/01/19 01:30 02/01/19 01:31 DC 02/01/19 01:36 8 MG Sodium Chloride 1,000 ml @ 0 mls/hr Q0M ONCE IV 02/01/19 00:46 02/01/19 00:48 DC 02/01/19 01:34 1,000 MLS/HR Vital Signs/I&O 02/01/19 02/01/19 01:14 03:35 Temp 98.3 98.3 Pulse 80 75 Resp 24 24 B/P (MAP) 100/75 (83) 91/52 (65) Pulse Ox 99 99 O2 Delivery Room Air Room Air Progress Progress Note : Time: 02:49 Progress Note Patient is feeling much improved. Her pain has decreased from 10/10 down to 4/10. We discussed imaging options. She would like to avoid the radiation risk of the CT scan at this time. We will do a simple KUB and treat symptoms. She will strain her urine. Follow-up with her primary care provider. Diagnostic Imaging Diagonstic Imaging: Xray Plain Films/CT/US/NM/MRI: abdomen Comments KUB viewed by me. Report not yet available. There is a moderate amount of stool in the right colon. No calcification representing ureteral stone was seen. Departure Impression Primary Impression: Right-sided abdominal pain of unknown cause Disposition: HOME, SELF-CARE Condition: Improved Departure-Patient Inst. Decision time for Depature: 02:48 Referrals: [facility] (PCP/Family) Primary Care Physician Patient Instructions: Acute Abdomen (Belly Pain), Adult (DC) Add. Discharge Instructions: Drink plenty of clear liquids. You may take ibuprofen up to 400 mg every 6 hours as needed for pain. Use hydrocodone as prescribed for pain not controlled by ibuprofen. There was a moderate amount of stool in the right colon. If constipation is suspected, you may use MiraLAX (polyethylene glycol) once or twice a day to help produce bowel movement. Strain your urine and bring any stones collected to your follow-up appointment. Follow-up with your primary care provider soon as possible. Return to the emergency room if you have worsening symptoms. All discharge instructions reviewed with patient and/or family. Voiced understanding. Scripts Hydrocodone Bit/Acetaminophen (Hydrocodone/Acetaminophen 5/325mg Tablet) 1 Tab Tab 1 EACH PO Q4-6HR PRN for PAIN-MODERATE MDD 10, #8 TAB Prov: BRUEGGEMANN,UDAY T MD 02/01/19 Ondansetron (Ondansetron Odt) 4 Mg Tab.rapdis 4 MG SL Q4H PRN for NAUSEA/VOMITING, #10 TAB Prov: UDAY GARCIA MD 02/01/19 Copy Copies To 1: JASON JEFFERY MD, JOSHUA T MD Feb 01, 2019 02:52
[2019-02-01] MEDS ORDERED: HYDROcodone/APAP 5 MG/325 MG (LORTAB) TAB PO ONE (03:30)
[2019-02-01 03:35] VITALS: BP 91/52
--- NOTE | 2019-02-01 07:42 | Diagnostic Imaging Report ---
INDICATION: Pain FINDINGS: There is no small bowel dilatation. The colonic fecal load at the ascending and transverse levels may be mildly elevated. Borderline proximal colonic constipation not excluded but no impaction or obstruction. Some pelvic calcifications scattered bilaterally most likely phleboliths. IMPRESSION: Borderline proximal to mid colonic constipation without obstruction or impaction. Dictated by: Dictated on workstation # [id number]
== END 2019-02-01 03:36 | disposition home or self-care (01) ==
LOC: EDUNIT# 00:42 → ER 00:43
DX: R10.31 Right lower quadrant pain (principal); J45.909 Unspecified asthma, uncomplicated; F17.210 Nicotine dependence, cigarettes, uncomplicated; Z87.01 Personal history of pneumonia (recurrent); Z87.442 Personal history of urinary calculi; Z87.440 Personal history of urinary (tract) infections
CPT/HCPCS: 36415; 74018; 80053; 81000; 84703; 85025; 96361; 96374; 96375